=== PATIENT | male | born 1970 | race Caucasian/White ===

== ENCOUNTER 2018-02-18 12:00 | Emergency (ER) | payer SELFPAY ==
[2018-02-18 12:15] VITALS: BP 136/94
--- NOTE | 2018-02-18 12:33 | UC ---
Dental HPI - HPI Summary HPI Summary: 47 yo male presents with right upper dental pain. He tells me that he has a " bad tooth" on the upper right of his mouth. Is in the process of getting into a dentist. Over the last week has noticed increased pain and swelling in this area with a bad taste in his mouth. He is able to eat and drink. Has been taking ibuprofen with good relief of pain. Denies fever - History of Current Complaint Chief Complaint: UCDentalProblem Stated Complaint: DENTAL PAIN Time Seen by Provider: 02/18/18 12:33 Hx Obtained From: Patient Onset/Duration: Gradual Onset Severity: Mild Pain Intensity: 3 Pain Scale Used: 0-10 Numeric - Allergies/Home Medications Allergies/Adverse Reactions: Allergies Allergy/AdvReac Type Severity Reaction Status Date / Time No Known Allergies Allergy Verified 02/18/18 12:15 Home Medications: Home Medications Ibuprofen TAB* [Motrin TAB* 800 MG] 800 mg PO ONCE PRN 02/18/18 [History Confirmed 02/18/18] PMH/Surg Hx/FS Hx/Imm Hx - Additional Past Medical History Additional PMH: None - Surgical History Surgical History: Yes Surgery Procedure, Year, and Place: mastoidectomy. a few surgeries for fractured arm - Family History Known Family History: Positive: None - Social History Lives: With Family Alcohol Use: None Substance Use Type: Marijuana Substance Use Comment - Amount & Last Used: DAILY Smoking Status (MU): Former Smoker When Did the Patient Quit Smoking/Using Tobacco: 2014 Review of Systems All Other Systems Reviewed And Are Negative: Yes Constitutional: Positive: Negative Skin: Positive: Negative Eyes: Positive: Negative ENT: Positive: Dental Pain Respiratory: Positive: Negative Cardiovascular: Positive: Negative Gastrointestinal: Positive: Negative Neurological: Positive: Negative Psychological: Positive: Negative Physical Exam - Summary Physical Exam Summary: GENERAL: NAD. WDWN. No pain distress. SKIN: No rashes, sores, lesions, or open wounds. HEENT: Head: AT/NC Nose: Nasal mucosa pink and moist. NTTP maxillary and frontal sinus. Throat: Posterior oropharynx without exudates, erythema, or tonsillar enlargement. Uvula midline. NECK: Supple. Nontender. No lymphadenopathy. CHEST: No accessory muscle use. Breathing comfortably and in no distress. CV: Pulses intact. Cap refill <2seconds NEURO: Alert. PSYCH: Age appropriate behavior. Triage Information Reviewed: Yes Vital Signs: Initial Vital Signs Temp 98.4 F 02/18/18 12:11 Pulse 72 02/18/18 12:11 Resp 16 02/18/18 12:11 BP 136/94 02/18/18 12:11 Pulse Ox 98 02/18/18 12:11 Vital Signs Reviewed: Yes Dental: Positive: Percussion Tenderness @ - Tooth #3, Gross Decay/Caries @ - throughout, Dental Fracture @ - Tooth #3, Abscess @ - Tooth #3. Negative: Cellulitis @, Cervical Lymphadenopathy, Bleeding Dental Complaint Course/Dx - Course Course Of Treatment: dental abscess Tooth #3 - Differential Dx/Diagnosis Provider Diagnosis: Dental abscess Discharge - Sign-Out/Discharge Documenting (check all that apply): Patient Departure All imaging exams completed and their final reports reviewed: No Studies - Discharge Plan Condition: Stable Disposition: HOME Prescriptions: Amoxicillin PO (*) [Amoxicillin 500 MG CAP*] 500 mg PO TID #21 cap Chlorhexidine MW 0.12% 473ML* [Peridex Mouth Wash 0.12%] 15 ml MT BID #1 btl Patient Education Materials: Dental Abscess (ED) Referrals: No Primary Care Phys,NOPCP [Primary Care Provider] - Additional Instructions: If you develop a fever, shortness of breath, chest pain, new or worsening symptoms - please call your PCP or go to the ED. Your blood pressure was high at todays visit. Please see your primary provider within 4 weeks for recheck and re-evaluation. Your prescriptions went to [facility] for the Urgent Rx program - Billing Disposition and Condition Condition: STABLE Disposition: Home
== END 2018-02-18 12:55 | disposition home or self-care (01) ==
LOC: UCEAST 12:00
DX: K04.7 Periapical abscess without sinus (principal); Z87.891 Personal history of nicotine dependence
CPT/HCPCS: 99212; G0463

== ENCOUNTER 2018-10-15 03:17 | Emergency (ER) | payer OTHER ==
[2018-10-15] MEDS ORDERED: methylPREDNISolone 125 MG* 2 ML VIAL IV ONE (03:39)
[2018-10-15] MEDS ORDERED: Albuterol/Ipratropium NEB.SOL* Albuterol 2.5 MG/Ipratropium 0.5 MG 3 ML INH ONE (03:39)
--- NOTE | 2018-10-15 03:39 | ED ---
Shortness of Breath - HPI Summary HPI Summary: This patient is a 48 year old male presenting to [facility] with a chief complaint of SOB since yesterday. The patient reports dizziness and a heavy chest. Patient has a fever in room of 100.7 F. The patient has a Hx of vaping. The patient rates his pain 6/10 in severity. - History of Current Complaint Chief Complaint: EDChestPainROMI Time Seen by Provider: 10/15/18 03:29 Hx Obtained From: Patient Onset/Duration: Lasting Days Associated Signs & Symptoms: Wheezing, Fever, Dizzy - Allergy/Home Medications Allergies/Adverse Reactions: Allergies Allergy/AdvReac Type Severity Reaction Status Date / Time No Known Allergies Allergy Verified 10/15/18 03:19 PMH/Surg Hx/FS Hx/Imm Hx Endocrine/Hematology History: Denies: Hx Diabetes, Hx Thyroid Disease Cardiovascular History: Denies: Hx Hypertension Respiratory History: Denies: Hx Asthma, Hx Chronic Obstructive Pulmonary Disease (COPD) GI History: Denies: Hx Ulcer - Surgical History Surgery Procedure, Year, and Place: mastoidectomy. a few surgeries for fractured arm Infectious Disease History: No Infectious Disease History: Reports: Hx of Known/Suspected MRSA Denies: Hx Hepatitis, Hx Human Immunodeficiency Virus (HIV), Traveled Outside the [place] in Last 30 Days - Family History Known Family History: Positive: None - Social History Alcohol Use: None Substance Use Type: Reports: Marijuana Substance Use Comment - Amount & Last Used: DAILY Smoking Status (MU): Former Smoker Review of Systems Positive: Fever Positive: Chest Pain - Heaviness Positive: Shortness Of Breath Neurological: Other - Dizziness All Other Systems Reviewed And Are Negative: Yes Physical Exam - Summary Physical Exam Summary: Appearance: Well appearing, no pain distress Skin: warm, dry, reflects adequate perfusion Head/face: normal Eyes: EOMI, KALIA ENT: normal Neck: supple, non-tender Respiratory: CTA, breath sounds present. Mild wheezes bilaterally. Cardiovascular: RRR, pulses symmetrical Abdomen: non-tender, soft Musculoskeletal: normal, strength/ROM intact Neuro: normal, sensory motor intact, A&Ox3 Triage Information Reviewed: Yes Vital Signs On Initial Exam: Initial Vitals Temp Pulse Resp BP Pulse Ox 100.7 F 102 38 153/98 99 10/15/18 03:17 10/15/18 03:17 10/15/18 03:17 10/15/18 03:17 10/15/18 03:17 Vital Signs Reviewed: Yes Diagnostics - Vital Signs Vital Signs Temp Pulse Resp BP Pulse Ox 10/15/18 03:17 100.7 F 102 38 153/98 99 - Laboratory Result Diagrams: 10/15/18 04:03 10/15/18 04:03 Lab Statement: Any lab studies that have been ordered have been reviewed, and results considered in the medical decision making process. - Radiology CXR Radiology Interpretation Completed By: ED Physician Summary of Radiographic Findings: No acute process. Pending official radiologist report. - EKG 0320 Cardiac Rate: NL - 93 BPM EKG Rhythm: Sinus Rhythm Course/Dx - Course Course Of Treatment: This patient is a 48 year old male presenting to [facility] with a chief complaint of SOB since yesterday. CXR was unremarkable for cardiopulmonary problems. This patient will be signed out to Dr. Grimes at shift change 0700 pending 2nd troponin. - Diagnoses Differential Diagnosis/HQI/PQRI: Positive: Bronchitis, Chest Wall Pain, Pneumonia Provider Diagnoses: Atypical chest pain, Bronchospasm Discharge - Sign-Out/Discharge Documenting (check all that apply): Patient Departure, Sign-Out Patient Signing out patient TO: Mu Grimes Patient Received Moderate/Deep Sedation with Procedure: No - Discharge Plan Condition: Stable Disposition: HOME Prescriptions: Albuterol HFA INHALER* [Ventolin HFA Inhaler*] 2 puff INH Q6H PRN #1 mdi MDD 4 PRN Reason: Sob/Wheezing Azithromycin TAB* [Zithromax TAB (Z-CORNELIA) 250 mg #6 tabs] 2 tab PO .TODAY, THEN 1 DAILY #1 cornelia methylPREDNISolone [Medrol] 4 mg PO ONCE #1 tab.ds.pk Additional Instructions: Return to ED with any new or worsening symptoms. - Billing Disposition and Condition Condition: STABLE Disposition: Home - Attestation Statements Document Initiated by Scribe: Yes Documenting Scribe: Jimenez Lucio Provider For Whom Mya is Documenting (Include Credential): Spike George MD Scribe Attestation: Jimenez Velazquez scribed for Spike George MD on 10/15/18 at 0646. Scribe Documentation Reviewed: Yes Provider Attestation: The documentation as recorded by the Jimenez ha accurately reflects the service I personally performed and the decisions made by me, Spike George MD Status of Scribe Document: Viewed
[2018-10-15] MEDS ORDERED: Acetaminophen TAB* 325 MG PO ONE (03:42)
[2018-10-15 04:14] LABS: ABS Eosinophils 0.4 10^3/ul (0-0.6); ABS Lymphocytes 0.7 10^3/ul (1.0-4.8); ABS Monocytes 1.1 10^3/ul (0-0.8); ABS Neutrophils 8.1 10^3/ul (1.5-7.7); Eosinophil % 3.8 %; Hematocrit 42 % (42-52); Hemoglobin 14.6 g/dL (14.0-18.0); Lymphocyte % 7.3 %; Mean Corpuscular HGB Conc 35 g/dL (31-36); Mean Corpuscular Hemoglobin 33 pg (27-31); Mean Corpuscular Volume 94 fL (80-94); Nucleated Red Blood Cells % 0.1; Platelet Count 202 10^3/uL (150-450); Red Blood Count 4.42 10^6 /uL (4.18-5.48); Red Cell Distribution Width 14 % (10-15); White Blood Count 10.3 10^3/uL (3.5-10.8)
[2018-10-15 04:34] LABS: INR 0.98 (0.82-1.09)
[2018-10-15 04:35] LABS: Activated Partial Thrombo Time 32.9 seconds (26.0-38.0); Albumin 4.2 g/dL (3.2-5.2); Albumin/Globulin Ratio 1.3 (1-3); BUN/Creatinine Ratio 25.6 (8-20); Calcium 9.6 mg/dL (8.6-10.3); EGFR African American 115.8 (>60); EGFR Non-African American 95.7 (>60); Globulin 3.2 g/dL (2-4); Potassium 3.7 mmol/L (3.5-5.0); Total Bilirubin 0.6 mg/dL (0.2-1.0); Total Protein 7.4 g/dL (6.4-8.9)
--- NOTE | 2018-10-15 07:09 | ED ---
Progress - Progress Note Progress Note: This pt is a sign out from Dr. George to Dr. Grimes at shift change 0700 10/15/18 pending a 2nd troponin, and disposition. Course/Dx - Course Course Of Treatment: This patient was signed out from Dr. George at shift change. He asked me to check the second troponin and if negative the patient can be safely discharged home with a follow-up with his PCP. His CXR was negative. His second troponin is 0.00, the patient is asymptomatic, the patient is feeling better and he is hemodynamically stable. Therefore he will be discharged home with follow-up with his PCP. He was given instructions to return to the emergency department if he develops any other symptoms or his symptoms return. He understands and agrees. - Diagnoses Provider Diagnoses: Atypical chest pain, Bronchospasm Discharge - Sign-Out/Discharge Documenting (check all that apply): Patient Departure - discharge Patient Received Moderate/Deep Sedation with Procedure: No - Discharge Plan Condition: Stable Disposition: HOME Prescriptions: Albuterol HFA INHALER* [Ventolin HFA Inhaler*] 2 puff INH Q6H PRN #1 mdi MDD 4 PRN Reason: Sob/Wheezing Azithromycin TAB* [Zithromax TAB (Z-CORNELIA) 250 mg #6 tabs] 2 tab PO .TODAY, THEN 1 DAILY #1 cornelia methylPREDNISolone [Medrol] 4 mg PO ONCE #1 tab.ds.pk Patient Education Materials: Chest Pain (ED), Bronchospasm (ED) Referrals: [facility] [Outside] - 2 Days Additional Instructions: FOLLOW UP WITH YOUR PRIMARY CARE PROVIDER WITHIN ONE WEEK FOR HIGH BLOOD PRESSURE NOTED TODAY. RETURN TO THE ED FOR ANY WORSENING OR NEW SYMPTOMS.PLEASE TAKE THE MEDICATIONS DIRECTED. . - Billing Disposition and Condition Condition: STABLE Disposition: Home - Attestation Statements Document Initiated by Scribe: Yes Documenting Scribe: Iron Aparicio Provider For Whom Zurdoibmary is Documenting (Include Credential): Mu Grimes MD Scribe Attestation: Iron Velazquez, scribed for Mu Grimes MD on 10/15/18 at 0934. Scribe Documentation Reviewed: Yes Provider Attestation: The documentation as recorded by the Iron ha accurately reflects the service I personally performed and the decisions made by me, Mu Grimes MD Status of Scribe Document: Viewed
[2018-10-15 08:19] VITALS: BP 97/66
== END 2018-10-15 08:18 | disposition home or self-care (01) ==
LOC: ED 03:17
DX: R07.89 Other chest pain (principal); J98.01 Acute bronchospasm; R42 Dizziness and giddiness; R50.9 Fever, unspecified; Z87.891 Personal history of nicotine dependence
CPT/HCPCS: 36415; 71045; 80053; 83605; 83880; 84484; 85025; 85379; 85610; 85730; 87040; 93005; 96374; 99284; A9270-GY; J2930

== ENCOUNTER 2019-05-12 14:33 | Emergency (ER) | payer OTHER ==
[2019-05-12] MEDS ORDERED: Acetaminophen TAB* 325 MG PO ONE (15:21)
[2019-05-12] MEDS ORDERED: Ondansetron ODT TAB* 4 MG SL ONE (15:22)
[2019-05-12] MEDS ORDERED: Tetan/Diph/Pertus SYR(Tdap)* 0.5 ML SYR(BOOSTRIX) use SYR contains LATEX IM ONE (16:39)
--- NOTE | 2019-05-12 16:39 | ED ---
Adult Trauma - HPI Summary HPI Summary: Patient complains of crush injury to right hand two and a half hours ago, with lacerations to right thumb and right ring finger. Tetanus status unknown. Denies any other pain, injury or symptoms. No anti-coag. - History of Current Complaint Chief Complaint: EDExtremityUpper Stated Complaint: FINGERS LAC RT HAND PER PT Time Seen by Provider: 05/12/19 16:37 Hx Obtained From: Patient Mechanism of Injury: Blunt Trauma Ambulatory at the Scene: Yes Loss of Consciousness: no loss of consciousness Onset/Duration: Started Hours Ago Onset of Pain: Immediate Onset Severity: Severe Current Severity: Severe Pain Intensity: 8 Pain Scale Used: 0-10 Numeric Location: Extremities Character: Dull, Aching Aggravating Factor(s): Movement, Palpation Alleviating Factor(s): Rest Associated Signs & Symptoms: Positive: Negative - Allergy/Home Medications Allergies/Adverse Reactions: Allergies Allergy/AdvReac Type Severity Reaction Status Date / Time No Known Allergies Allergy Verified 05/12/19 14:51 Home Medications: Home Medications Albuterol HFA INHALER* [Ventolin HFA Inhaler*] 2 puff INH Q6H PRN #1 mdi MDD 4 10/15/18 [Rx] Azithromycin TAB* [Zithromax TAB (Z-CORNELIA) 250 mg #6 tabs] 2 tab PO .TODAY, THEN 1 DAILY #1 cornelia 10/15/18 [Rx] methylPREDNISolone [Medrol] 4 mg PO ONCE #1 tab.ds.pk 10/15/18 [Rx] Cephalexin CAP* [Keflex CAP*] 500 mg PO QID 7 Days #28 cap 05/12/19 [Rx] PMH/Surg Hx/FS Hx/Imm Hx Endocrine/Hematology History: Denies: Hx Anticoagulant Therapy, Hx Diabetes, Hx Thyroid Disease Cardiovascular History: Denies: Hx Hypertension Respiratory History: Denies: Hx Asthma, Hx Chronic Obstructive Pulmonary Disease (COPD) GI History: Denies: Hx Ulcer History: Denies: Hx Dialysis Musculoskeletal History: Denies: Hx Gout Sensory History: Denies: Hx Eye Prosthesis Opthamlomology History: Denies: Hx Legally Blind EENT History: Denies: Hx Deafness Neurological History: Denies: Hx Dementia - Surgical History Surgery Procedure, Year, and Place: mastoidectomy. a few surgeries for fractured arm Infectious Disease History: No Infectious Disease History: Reports: Hx of Known/Suspected MRSA Denies: Hx Hepatitis, Hx Human Immunodeficiency Virus (HIV), Traveled Outside the [place] in Last 30 Days - Family History Known Family History: Positive: None - Social History Alcohol Use: None Substance Use Type: Reports: Marijuana Substance Use Comment - Amount & Last Used: DAILY Smoking Status (MU): Former Smoker Review of Systems Constitutional: Negative Eyes: Negative ENT: Negative Cardiovascular: Negative Respiratory: Negative Gastrointestinal: Negative Genitourinary: Negative Musculoskeletal: Other Skin: Other Neurological/Mental Status: Negative Psychological: Normal All Other Systems Reviewed And Are Negative: Yes Physical Exam - Summary Physical Exam Summary: Laceration to volar surface of distal right ring finger with mild fingernail pulling away from nailbed. Otherwise normal exam of right ring finger. Laceration to volar surface of the right thumb. No nailbed involvement. Otherwise normal exam of right thumb. Normal exam of remainder of hand. PMS intact. No obvious deformity noted to the fingers or hand. Triage Information Reviewed: Yes Vital Signs On Initial Exam: Initial Vitals Temp Pulse Resp BP Pulse Ox 97.1 F 62 16 89/61 99 05/12/19 14:48 05/12/19 14:48 05/12/19 14:48 05/12/19 14:48 05/12/19 14:48 Vital Signs Reviewed: Yes Appearance: Positive: Well-Appearing Skin: Positive: Warm Head/Face: Positive: Normal Head/Face Inspection Eyes: Positive: Normal Neck: Positive: Supple Respiratory/Lung Sounds: Positive: Clear to Auscultation Cardiovascular: Positive: Normal Abdomen Description: Positive: Nontender Musculoskeletal: Positive: Normal Neurological: Positive: Normal Psychiatric: Positive: Normal AVPU Assessment: Alert - Sandoval Coma Scale Best Eye Response: 4 - Spontaneous Best Motor Response: 6 - Obeys Commands Best Verbal Response: 5 - Oriented Coma Scale Total: 15 Procedures - Sedation Patient Received Moderate/Deep Sedation with Procedure: No - Laceration/Wound Repair 1 Location: upper extremity - right thumb Description: Linear Anesthesia: Digital, 1.0% Length, Depth and Shape: 2cm x .5cm Betadine Prep?: No Irrigated w/ Saline (ccs): 200 Laceration/Wound Explored: clean Debridement: minimal Number of Sutures: 8 - 4.0 ethilon Layer Closure?: No Sterile Dressing Applied?: No 2 Location: upper extremity - . Right ring finger Description: Linear Anesthesia: Digital, 1.0% Length, Depth and Shape: 2.5cm x .5cm Irrigated w/ Saline (ccs): 500 Laceration/Wound Explored: clean Number of Sutures: 8 - 4.0 Ethilon Layer Closure?: No Sterile Dressing Applied?: No Diagnostics - Vital Signs Vital Signs Temp Pulse Resp BP Pulse Ox 05/12/19 14:48 97.1 F 62 16 89/61 99 - Laboratory Lab Statement: Any lab studies that have been ordered have been reviewed, and results considered in the medical decision making process. Adult Trauma Course/Dx - Course Course Of Treatment: Patient complains of crush injury to right hand two and a half hours ago, with lacerations to right thumb and right ring finger. Tetanus status unknown. Denies any other pain, injury or symptoms. No anti-coag. Vital signs within normal limits. Wounds cleaned and sutured. - Diagnoses Provider Diagnoses: Laceration, Closed fracture of tuft of distal phalanx of finger, Laceration of finger of right hand, Laceration of right thumb Discharge ED - Sign-Out/Discharge Documenting (check all that apply): Patient Departure - Discharge Plan Condition: Stable Disposition: HOME Prescriptions: Cephalexin CAP* [Keflex CAP*] 500 mg PO QID 7 Days #28 cap Patient Education Materials: Finger Fracture (ED), Finger Laceration (ED) Referrals: No Primary Care Phys,NOPCP [Primary Care Provider] - Jimenez Grewal MD [Medical Doctor] - Additional Instructions: Take antibiotics as directed. You may wash wound with warm running water and soap. Do not submerge underwater for 5 days. Keep wounds clean and dry and protected when not washing. His right ring finger for 2 weeks. Sutures out in 10 days. If hand does not improve in 1 week follow-up with orthopedics Dr. Grewal for further evaluation. Return to ED for any new or worsening symptoms. - Billing Disposition and Condition Condition: STABLE Disposition: Home
[2019-05-12] MEDS ORDERED: Lidocaine 1% MPF ** 5 ML VIAL INJ ONE (16:46)
[2019-05-12] MEDS ORDERED: Cephalexin CAP* 500 MG PO ONE (17:53)
[2019-05-12 19:25] VITALS: BP 138/91
== END 2019-05-12 19:24 | disposition home or self-care (01) ==
LOC: ED 14:33
DX: S62.639A Displaced fracture of distal phalanx of unspecified finger, initial encounter for closed fracture (principal); S61.011A Laceration without foreign body of right thumb without damage to nail, initial encounter; S61.214A Laceration without foreign body of right ring finger without damage to nail, initial encounter; X58.XXXA Exposure to other specified factors, initial encounter; Y92.9 Unspecified place or not applicable; Z87.891 Personal history of nicotine dependence; Z79.899 Other long term (current) drug therapy; Z86.14 Personal history of Methicillin resistant Staphylococcus aureus infection
CPT/HCPCS: 90471; 90715; 96375; 99282; A9270-GY

== ENCOUNTER 2019-06-08 14:32 | Emergency (ER) | payer OTHER ==
--- NOTE | 2019-06-08 15:04 | ED ---
Upper Extremity Pain - HPI Summary HPI Summary: 49 year old male presents for wound check of right thumb. A month ago he cut the tip of his right thumb and it was reattached. He states they took out the sutures at day 12. He states that when removed sutures himself the area was spreading up so he placed Steri-Strips to keep the area together. States he has had decreased sensation of his finger since. He's noticed some black tissue along with laceration was that has been there since the laceration. He has not followed with anyone yet. - History of Current Complaint Chief Complaint: EDExtremityUpper Stated Complaint: HAND INJURY Time Seen by Provider: 06/08/19 14:41 - Allergies/Home Medications Allergies/Adverse Reactions: Allergies Allergy/AdvReac Type Severity Reaction Status Date / Time No Known Allergies Allergy Verified 05/12/19 14:51 Home Medications: Home Medications Albuterol HFA INHALER* [Ventolin HFA Inhaler*] 2 puff INH Q6H PRN #1 mdi MDD 4 10/15/18 [Rx] Azithromycin TAB* [Zithromax TAB (Z-CORNELIA) 250 mg #6 tabs] 2 tab PO .TODAY, THEN 1 DAILY #1 cornelia 10/15/18 [Rx] methylPREDNISolone [Medrol] 4 mg PO ONCE #1 tab.ds.pk 10/15/18 [Rx] Cephalexin CAP* [Keflex CAP*] 500 mg PO QID 7 Days #28 cap 05/12/19 [Rx] PMH/Surg Hx/FS Hx/Imm Hx Endocrine/Hematology History: Denies: Hx Anticoagulant Therapy, Hx Diabetes, Hx Thyroid Disease Cardiovascular History: Denies: Hx Hypertension Respiratory History: Denies: Hx Asthma, Hx Chronic Obstructive Pulmonary Disease (COPD) GI History: Denies: Hx Ulcer History: Denies: Hx Dialysis Musculoskeletal History: Denies: Hx Gout Sensory History: Denies: Hx Eye Prosthesis, Hx Legally Blind, Hx Deafness Opthamlomology History: Denies: Hx Eye Prosthesis, Hx Legally Blind Neurological History: Denies: Hx Dementia - Surgical History Surgery Procedure, Year, and Place: mastoidectomy. a few surgeries for fractured arm Infectious Disease History: No Infectious Disease History: Reports: Hx of Known/Suspected MRSA Denies: Hx Hepatitis, Hx Human Immunodeficiency Virus (HIV), Traveled Outside the [place] in Last 30 Days - Family History Known Family History: Positive: None - Social History Alcohol Use: None Substance Use Type: Reports: Marijuana Substance Use Comment - Amount & Last Used: DAILY Smoking Status (MU): Former Smoker Review of Systems Negative: Fever Negative: Chest Pain Negative: Shortness Of Breath Positive: Rash All Other Systems Reviewed And Are Negative: Yes Physical Exam Triage Information Reviewed: Yes Vital Signs On Initial Exam: Initial Vitals Temp Pulse Resp BP Pulse Ox 95.6 F 82 18 149/91 97 06/08/19 14:33 06/08/19 14:33 06/08/19 14:33 06/08/19 14:33 06/08/19 14:33 Vital Signs Reviewed: Yes Appearance: Positive: Well-Appearing Skin: Positive: Warm, Dry Head/Face: Positive: Normal Head/Face Inspection Eyes: Positive: Normal, Conjunctiva Clear ENT: Positive: Pharynx normal Respiratory/Lung Sounds: Positive: Clear to Auscultation, Breath Sounds Present Cardiovascular: Positive: Normal, RRR Musculoskeletal: Positive: Limited @ - right thumb, Other - black necrotic looking tissue under nail and along previous laceration to half of the right thumb, decrease sensation to tip of thumb, no evidence of dehiscence Neurological: Positive: Normal Psychiatric: Positive: Normal Procedures - Sedation Patient Received Moderate/Deep Sedation with Procedure: No Diagnostics - Vital Signs Vital Signs Temp Pulse Resp BP Pulse Ox 06/08/19 14:33 95.6 F 82 18 149/91 97 - Laboratory Lab Statement: Any lab studies that have been ordered have been reviewed, and results considered in the medical decision making process. - Radiology thumb Radiology Interpretation Completed By: Radiologist Summary of Radiographic Findings: #. Normal articular alignment. #. Mildly increased displacement at the mildly comminuted fracture at the tuft of the distal phalanx suggesting reinjury in a prior fracture site. Increased overlying soft tissue swelling. Course/Dx - Course Course Of Treatment: 49 year old male presents for wound check of right thumb. A month ago he cut the tip of his right thumb and it was reattached. He states they took out the sutures at day 12. He states that when removed sutures himself the area was spreading up so he placed Steri-Strips to keep the area together. States he has had decreased sensation of his finger since. He's noticed some black tissue along with laceration was that has been there since the laceration. He has not followed with anyone yet. On exam has black necrotic tissue along the laceration of the nail. one area of the distal finger appears to be healing well. X-rays. Discussed with Dr. forman we'll have follow-up with orthopedist. Does not appear infected at this point but does have some necrotic looking tissue and decreased ROM since the incident. Patient understands and agrees with the plan. - Diagnoses Differential Diagnosis/HQI/PQRI: Positive: Other - dehiscence, cellulitis, healing wound Provider Diagnoses: Healing wound Discharge ED - Sign-Out/Discharge Documenting (check all that apply): Patient Departure - Discharge Plan Condition: Good Disposition: HOME Referrals: No Primary Care Phys,NOPCP [Primary Care Provider] - Jimenez Grewal MD [Medical Doctor] - Additional Instructions: follow up with hand surgery continue applying topical antibiotic Return to ED if develop any new or worsening symptoms - Billing Disposition and Condition Condition: GOOD Disposition: Home - Attestation Statements Provider Attestation: I have seen the patient with the EDNYS and agree with the plan and documentation below except as noted:49-year-old male presenting with healing thumb laceration. Distal thumb appears mildly dusky, well-healing wound. Referred to hand surgery Inez Forman MD
[2019-06-08 15:50] VITALS: BP 150/95
== END 2019-06-08 15:49 | disposition home or self-care (01) ==
LOC: ED 14:32
DX: S61.011D Laceration without foreign body of right thumb without damage to nail, subsequent encounter (principal); W45.8XXD Other foreign body or object entering through skin, subsequent encounter; Z87.891 Personal history of nicotine dependence
CPT/HCPCS: 99281